=== PATIENT | female | born 1960 ===

== ENCOUNTER 2025-05-12 17:32 | Inpatient (IN) | payer MEDICARE, OTHER ==
[~2025-05-12] VITALS: Ht 167.6 cm; Wt 67.7 kg
[~2025-05-12 17:32] MED LIST: Robaxin750 MG PO
[2025-05-12] MEDS ORDERED: NS 1,000 ML IV SCH ×3 (17:40→23:10)
[2025-05-12 18:07] LABS: BASOPHILS ABSOLUTE AUTO 0.02 K/mm3 (0.00-0.23); BASOPHILS PERCENT AUTO 0 % (0-2); EOSINOPHILS ABSOLUTE AUTO 0.00 K/mm3 (0.00-0.68); EOSINOPHILS PERCENT AUTO 0 % (0-6); Hematocrit 48.2 % (33.0-51.0); Hemoglobin 16.2 g/dL (11.5-16.0); IMMATURE GRAN ABSOLUTE AUTO 0.07 K/mm3 (0.00-0.10); IMMATURE GRAN PERCENT AUTO 1 % (0-1); LYMPHOCYTES ABSOLUTE AUTO 1.84 K/mm3 (0.84-5.20); LYMPHOCYTES PERCENT AUTO 12 % (21-46); MONOCYTES ABSOLUTE AUTO 0.97 K/mm3 (0.16-1.47); MONOCYTES PERCENT AUTO 6 % (4-13); Mean Corpuscular HGB Conc 33.6 g/dL (31.5-36.5); Mean Corpuscular Volume 88 fL (80-100); NEUTROPHILS ABSOLUTE AUTO 12.31 K/mm3 (1.96-9.15); NEUTROPHILS PERCENT AUTO 81 % (41-73); NRBC ABSOLUTE 0.00 K/mm3 (0.00-0.02); NRBC Auto 0.0 /100 WBC (0.0-0.2); Platelet Count 321 K/mm3 (150-400); RDW Coefficient Variation 14.8 % (11.7-14.2); RDW Standard Deviation 47.3 fL (35.1-46.3)
[2025-05-12 18:47] LABS: Alanine Aminotransfer (ALT/SGP 70.0 U/L (12-78); Albumin, Blood 3.3 g/dL (3.4-5.0); Albumin/Globulin Ratio 0.8 (0.8-1.8); Anion Gap 12.0 mmol/L (3-11); Bilirubin, Total 1.4 mg/dL (0.1-1.0); Blood Urea Nitrogen 41.0 mg/dL (8-24); CO2, Blood 25.0 mmol/L (21-32); Calcium, Blood 9.5 mg/dL (8.5-10.1); Chloride, Blood 110.0 mmol/L (98-108); Creatinine, Blood 0.52 mg/dL (0.40-1.00); Globulin, Blood 4.1 g/dL (2.2-4.0); Glucose, Blood 109.0 mg/dL (70-99); Sodium, Blood 141.0 mmol/L (136-145); Total Protein, Blood 7.4 g/dL (6.4-8.2)
[2025-05-12 18:48] LABS: Aspartate Aminotrans (AST/SGOT 163.0 U/L (12-37); Potassium, Blood 5.6 mmol/L (3.5-5.5)
[2025-05-12 18:54] LABS: Source, Urine Foley catheter
[2025-05-12 19:05] LABS: Color, Urine Yellow (P-Yellow); Glucose Qualitative, Urine Neg (Neg); Ketones, Urine 2+ (Neg); Leukocyte Esterase, Urine 1+ (Neg); Protein, Urine 2+ (Neg); Specific Gravity, Urine 1.025 (1.003-1.022); Urobilinogen, Urine 1+ (Normal)
[2025-05-12 19:14] LABS: Bilirubin, Urine 1+ (Neg)
[2025-05-12 19:22] LABS: U Amphetamine Screen Not Detected; U Barbiturate Screen Not Detected; U Benzodiazapine Screen Not Detected; U Buprenorphine Screen Not Detected; U Cannabinoids Screen DETECTED; U Cocaine Screen Not Detected; U Methadone Screen Not Detected; U Methamphetamine Screen Not Detected; U Opiates Screen Not Detected; U Oxycodone Screen Not Detected; U Phencyclidine Screen Not Detected
[2025-05-12] MEDS ORDERED: Piperacillin/Tazobactam Sod 4.5 GM in NS 100 ML IV ONE (19:25)
[2025-05-12] MEDS ORDERED: Vancomycin HCL 2,000 MG in NS 520 ML IV ONE (19:25)
[2025-05-12] MEDS ORDERED: FLU VACC TS2025(65UP)/MF59C/PF 45 MCG/0.5 ML SYRINGE IM SCH (23:10)
[2025-05-12] MEDS ORDERED: Ondansetron HCl 2 MG / ML 2ML Vial IV PRN (23:10)
[2025-05-12] MEDS ORDERED: FentaNYL Citrate 50 MCG/ML 2 ML Injection IV PRN (23:10)
[2025-05-12 23:26] LABS: Prothrombin Time Results 11.8 Sec (9.7-11.5)
[2025-05-13 00:19] VITALS: BP 113/85
[2025-05-13 01:40] LABS: Anion Gap 11.0 mmol/L (3-11); Blood Urea Nitrogen 34.0 mg/dL (8-24); CO2, Blood 26.0 mmol/L (21-32); Calcium, Blood 8.9 mg/dL (8.5-10.1); Chloride, Blood 115.0 mmol/L (98-108); Creatinine, Blood 0.67 mg/dL (0.40-1.00); Glucose, Blood 92.0 mg/dL (70-99); Potassium, Blood 3.9 mmol/L (3.5-5.5); Sodium, Blood 148.0 mmol/L (136-145)
[2025-05-13] MEDS ORDERED: CefTRIAXone Sodium 1,000 MG in NS 100 ML IV SCH (02:29)
[2025-05-13] MEDS ORDERED: NS 250 ML IV PRN (03:00)
[2025-05-13] MEDS ORDERED: Tobramycin/Dexameth Opth Susp 2.5 ML LEFTEYE SCH (06:00)
[2025-05-13 06:11] LABS: BASOPHILS ABSOLUTE AUTO 0.01 K/mm3 (0.00-0.23); BASOPHILS PERCENT AUTO 0 % (0-2); EOSINOPHILS ABSOLUTE AUTO 0.04 K/mm3 (0.00-0.68); EOSINOPHILS PERCENT AUTO 0 % (0-6); Hematocrit 41.3 % (33.0-51.0); Hemoglobin 13.6 g/dL (11.5-16.0); IMMATURE GRAN ABSOLUTE AUTO 0.05 K/mm3 (0.00-0.10); IMMATURE GRAN PERCENT AUTO 0 % (0-1); LYMPHOCYTES ABSOLUTE AUTO 1.61 K/mm3 (0.84-5.20); LYMPHOCYTES PERCENT AUTO 14 % (21-46); MONOCYTES ABSOLUTE AUTO 0.86 K/mm3 (0.16-1.47); MONOCYTES PERCENT AUTO 7 % (4-13); Mean Corpuscular HGB Conc 32.9 g/dL (31.5-36.5); Mean Corpuscular Volume 90 fL (80-100); NEUTROPHILS ABSOLUTE AUTO 9.39 K/mm3 (1.96-9.15); NEUTROPHILS PERCENT AUTO 79 % (41-73); NRBC ABSOLUTE 0.00 K/mm3 (0.00-0.02); NRBC Auto 0.0 /100 WBC (0.0-0.2); Platelet Count 274 K/mm3 (150-400); RDW Coefficient Variation 14.9 % (11.7-14.2); RDW Standard Deviation 48.8 fL (35.1-46.3)
[2025-05-13 06:17] VITALS: BP 130/81
[2025-05-13 06:29] LABS: Alanine Aminotransfer (ALT/SGP 57.0 U/L (12-78); Albumin, Blood 2.9 g/dL (3.4-5.0); Albumin/Globulin Ratio 0.9 (0.8-1.8); Anion Gap 9.0 mmol/L (3-11); Aspartate Aminotrans (AST/SGOT 106.0 U/L (12-37); Bilirubin, Total 1.0 mg/dL (0.1-1.0); Blood Urea Nitrogen 30.0 mg/dL (8-24); CO2, Blood 27.0 mmol/L (21-32); Calcium, Blood 8.8 mg/dL (8.5-10.1); Chloride, Blood 115.0 mmol/L (98-108); Creatinine, Blood 0.71 mg/dL (0.40-1.00); Globulin, Blood 3.1 g/dL (2.2-4.0); Glucose, Blood 91.0 mg/dL (70-99); Potassium, Blood 3.6 mmol/L (3.5-5.5); Sodium, Blood 147.0 mmol/L (136-145); Total Protein, Blood 6.0 g/dL (6.4-8.2)
--- NOTE | 2025-05-13 06:43 | NUR ---
Shift Summary Pt admitted to this unit from ED for rhabdo, UTI and wounds. She was found down at her house for an unknown amount of time up to 5 days. She has pressure injuries on L face, L hand and L foot. Consult ordered for ortho to determine if pt needs debridement, I placed a request into Dr. Pratt's answering service for today. Pt is AOx3, on bedrest, very weak. She had one loose, watery incontinent BM this shift. No c/o of pain or nausea.
[2025-05-13 09:31] VITALS: BP 140/82
[2025-05-13] MEDS ORDERED: NS 1,000 ML IV SCH (12:30)
[2025-05-13 12:39] VITALS: BP 137/80
[2025-05-13] MEDS ORDERED: CELEXA40 M1 PO (13:05)
[2025-05-13] MEDS ORDERED: ELIQUIS5 M2 PO (13:05)
[2025-05-13] MEDS ORDERED: BUSP5 PO (13:05)
[2025-05-13] MEDS ORDERED: POTA20PAC PO (13:06)
[2025-05-13] MEDS ORDERED: LEVETIRACETAM1000 M1 PO (13:06)
[2025-05-13] MEDS ORDERED: ATOR40TA PO (13:08)
[2025-05-13 15:52] VITALS: BP 119/81
[2025-05-13] MEDS ORDERED: Enoxaparin 40 MG/0.4 ML SYR SC SCH (19:05)
[2025-05-13 20:37] VITALS: BP 114/71
[2025-05-14] VITALS (8 sets, daily range): BP systolic 110–127; BP diastolic 68–81
--- NOTE | 2025-05-14 05:54 | NUR ---
PT L HAND RING FINGER HAD SWELLING RING WAS REMOVED AND PLACED IN HER BELONGLINGS BAG INSIDE HER SLIPPER. PT HAS SCATTERED SCABS AND ESCHAR. CARDOSO CATHETER WAS REMOVED PT HAS DENIED THE NEED TO URINATE AT 0100 BLADDER SCAN SHOWED 158 ML AT 0500 BLADDER SCAN SHOWED 408 ML PT DENIES THE NEED TO URINATE AND WOULD LIKE TO WAIT ANOTHER 2 HOURS BEFORE TRYING TO URINATE.
[2025-05-14 06:29] LABS: BASOPHILS ABSOLUTE AUTO 0.02 K/mm3 (0.00-0.23); BASOPHILS PERCENT AUTO 0 % (0-2); EOSINOPHILS ABSOLUTE AUTO 0.23 K/mm3 (0.00-0.68); EOSINOPHILS PERCENT AUTO 3 % (0-6); Hematocrit 36.1 % (33.0-51.0); Hemoglobin 12.1 g/dL (11.5-16.0); IMMATURE GRAN ABSOLUTE AUTO 0.09 K/mm3 (0.00-0.10); IMMATURE GRAN PERCENT AUTO 1 % (0-1); LYMPHOCYTES ABSOLUTE AUTO 2.37 K/mm3 (0.84-5.20); LYMPHOCYTES PERCENT AUTO 25 % (21-46); MONOCYTES ABSOLUTE AUTO 0.63 K/mm3 (0.16-1.47); MONOCYTES PERCENT AUTO 7 % (4-13); Mean Corpuscular HGB Conc 33.5 g/dL (31.5-36.5); Mean Corpuscular Volume 90 fL (80-100); NEUTROPHILS ABSOLUTE AUTO 6.00 K/mm3 (1.96-9.15); NEUTROPHILS PERCENT AUTO 64 % (41-73); NRBC ABSOLUTE 0.00 K/mm3 (0.00-0.02); NRBC Auto 0.0 /100 WBC (0.0-0.2); Platelet Count 253 K/mm3 (150-400); RDW Coefficient Variation 14.6 % (11.7-14.2); RDW Standard Deviation 48.5 fL (35.1-46.3)
[2025-05-14 06:50] LABS: Alanine Aminotransfer (ALT/SGP 47.0 U/L (12-78); Albumin, Blood 2.4 g/dL (3.4-5.0); Albumin/Globulin Ratio 0.9 (0.8-1.8); Anion Gap 8.0 mmol/L (3-11); Aspartate Aminotrans (AST/SGOT 73.0 U/L (12-37); Bilirubin, Total 1.0 mg/dL (0.1-1.0); Blood Urea Nitrogen 19.0 mg/dL (8-24); CO2, Blood 26.0 mmol/L (21-32); Calcium, Blood 8.1 mg/dL (8.5-10.1); Chloride, Blood 110.0 mmol/L (98-108); Creatinine, Blood 0.61 mg/dL (0.40-1.00); Globulin, Blood 2.6 g/dL (2.2-4.0); Glucose, Blood 98.0 mg/dL (70-99); Potassium, Blood 3.0 mmol/L (3.5-5.5); Sodium, Blood 141.0 mmol/L (136-145); Total Protein, Blood 5.0 g/dL (6.4-8.2)
--- NOTE | 2025-05-14 13:07 | NUR ---
PT FALL PT FOUND ON THE FLOOR BY TIFFANY DENG AT 0745. PT STATED SHE WAS "DRAGGING" HER FEET WHILE USING THE WALKER BY THE WALL IN HER ROOM WHEN SHE "LEANED" AGAINST THE WALL AND "SLID" DOWN THE WALL TO THE FLOOR. VITALS TAKEN AND STABLE, NO INJURIES SUSTAINED. VENUS JOHNSON AND TIFFANY DENG ASSISTED PT TO THE CHAIR. THIS RN NOTIFIED [employer] [place] AND . PER PROVIDER, ORDER FOR SEIZURE AND FALL PRECAUTIONS, AND COMPLETE SET OF ORTHOSTATIC VITALS. PT PLACED IN YELLOW GOWN, YELLOW SOCKS ON, CHAIR ALARM ON, AND RISK FOR FALL LIGHT PLACED ON OUTSIDE OF ROOM. CALL LIGHT PLACED WITHIN REACH. POST FALL ASSESSMENT COMPLETE.
--- NOTE | 2025-05-14 13:31 | NUR ---
PUT PATIENT INTO A YELLOW GOWN AND YELLOW SOCKS,VITALS OBTAINED, ASSISTED TO THE CHAIR FOR BREAKFAST AND SET UP MEAL TRAY,COMBED THE KNOTS OUT OF HER MATTED HAIR AND BRAIDED
--- NOTE | 2025-05-14 17:42 | NUR ---
FLUIDS NOT STARTED PER ORDER YESTERDAY. THIS RN CALLED TO CLARIFY. PER PROVIDER, START FLUIDS PER ORDER.
--- NOTE | 2025-05-14 18:01 | NUR ---
SHIFT SUMMARY PT A&OX4, VSS, AMB W/ ASSIST, TOLERATING PO, VOIDING, AND DENIED PAIN. NS INFUSING PER ORDER. PT HAD FALL THIS AM, SEE PREVIOUS NOTE. NO OTHER ACUTE CHANGES. CALL LIGHT WITHIN REACH AND CHAIR ALARM ON.
[2025-05-15 03:39] VITALS: BP 134/76
--- NOTE | 2025-05-15 03:56 | NUR ---
SHIFT SUMMARY: PT IS AOX2-3 AND IS FORGETFUL MOST OF THE TIME. PT IS IMPULSIVE AND EDUCATED SEVERAL TIMES TO CALL INSTEAD OF GETTING OUT OF BED WITH OUT HELP. BED ALARM SET BUT PT SET BED ALARM OFF SEVERAL TIMES THROUGHOUT SHIFT. PT IS MOST CONT AND HAS NS RUNNING CONTINOUSLY AT 100 MLS/HR.
[2025-05-15 07:40] VITALS: BP 129/89
[2025-05-15 11:43] VITALS: BP 121/79
[2025-05-15 11:51] LABS: BASOPHILS ABSOLUTE AUTO 0.03 K/mm3 (0.00-0.23); BASOPHILS PERCENT AUTO 0 % (0-2); EOSINOPHILS ABSOLUTE AUTO 0.26 K/mm3 (0.00-0.68); EOSINOPHILS PERCENT AUTO 3 % (0-6); Hematocrit 39.7 % (33.0-51.0); Hemoglobin 13.1 g/dL (11.5-16.0); IMMATURE GRAN ABSOLUTE AUTO 0.14 K/mm3 (0.00-0.10); IMMATURE GRAN PERCENT AUTO 1 % (0-1); LYMPHOCYTES ABSOLUTE AUTO 2.67 K/mm3 (0.84-5.20); LYMPHOCYTES PERCENT AUTO 27 % (21-46); MONOCYTES ABSOLUTE AUTO 0.70 K/mm3 (0.16-1.47); MONOCYTES PERCENT AUTO 7 % (4-13); Mean Corpuscular HGB Conc 33.0 g/dL (31.5-36.5); Mean Corpuscular Volume 91 fL (80-100); NEUTROPHILS ABSOLUTE AUTO 6.25 K/mm3 (1.96-9.15); NEUTROPHILS PERCENT AUTO 62 % (41-73); NRBC ABSOLUTE 0.00 K/mm3 (0.00-0.02); NRBC Auto 0.0 /100 WBC (0.0-0.2); Platelet Count 304 K/mm3 (150-400); RDW Coefficient Variation 14.6 % (11.7-14.2); RDW Standard Deviation 49.1 fL (35.1-46.3)
[2025-05-15 12:38] LABS: Alanine Aminotransfer (ALT/SGP 71.0 U/L (12-78); Albumin, Blood 2.8 g/dL (3.4-5.0); Albumin/Globulin Ratio 0.9 (0.8-1.8); Anion Gap 7.0 mmol/L (3-11); Aspartate Aminotrans (AST/SGOT 94.0 U/L (12-37); Bilirubin, Total 1.0 mg/dL (0.1-1.0); Blood Urea Nitrogen 9.0 mg/dL (8-24); CO2, Blood 29.0 mmol/L (21-32); Calcium, Blood 8.6 mg/dL (8.5-10.1); Chloride, Blood 107.0 mmol/L (98-108); Creatinine, Blood 0.62 mg/dL (0.40-1.00); Globulin, Blood 3.1 g/dL (2.2-4.0); Glucose, Blood 119.0 mg/dL (70-99); Potassium, Blood 3.6 mmol/L (3.5-5.5); Sodium, Blood 139.0 mmol/L (136-145); Total Protein, Blood 5.9 g/dL (6.4-8.2)
[2025-05-15 15:52] VITALS: BP 128/84
--- NOTE | 2025-05-15 17:08 | NUR ---
SHIFT SUMMARY PATIENT ALERT AND ORIENTED X 3-4 FORGETFUL AT TIMES. MAKE NEEDS KNOWN. VITAL SIGNS STABLE THROUGHOUT THE SHIFT. MEDICATION ADMINISTERED PER EMAR. PATIENT PLEASANT AND RECEPTIVE DURING CARE. NO ACUTE CHANGE DURING THIS SHIFT. TOLERATING PO, VOIDING, AND DENIES PAIN. SELF REPOSITIONED THROUGHOUT SHIFT. BED LOCKED AND IN LOWEST POSITION. CALL LIGHT WITHIN REACH.
[2025-05-15 19:20] VITALS: BP 121/72
[2025-05-16 03:41] VITALS: BP 131/91
--- NOTE | 2025-05-16 05:44 | NUR ---
Pt has slept t/o the night incontinent of urine. No acute changes noted, pt has denied pain and needs this shift.
[2025-05-16 07:31] VITALS: BP 139/78
--- NOTE | 2025-05-16 09:10 | NUR ---
pt laying in bed with eyes closed, wakes easily, is a/ox4, pleasant and cooperative with care, follows commands well, she is a bit forgetful, lungs are clear dim in bases, on r/a, resp even and unlabored, no cough noted, hrr, no edema noted, ppp+2, cap refill <3 sec, vs stable, afebrile, piv to lac site is clear and patent, btx4, abd flat soft nontender, incont of urine, briefs in place, skin has scattered scratches and scabs on left arm and belly, maew, general weakness, alcon, call light in reach.
[2025-05-16] MEDS ORDERED: Tobramycin-Dexam5 ML LEFTEYE (10:38)
--- NOTE | 2025-05-16 13:21 | NUR ---
pt will be tx to long term care administrator care, transport will be here at 14:30, report called to Spike at [facility]. piv removed intact, call light in reach.
--- NOTE | 2025-05-16 14:13 | NUR ---
pt is transfered to [facility], left with transport via wheelchair with all her belongings. piv removed intact.
== END 2025-05-16 14:50 | DRG 557 ==
LOC: ER 17:32 → MEDS 22:21 → ENPENDDIS 05-16 10:11 → MEDS 05-16 14:50
PROVIDERS: Emergency Medicine; Internal Medicine; ADMIT Internal Medicine
PROC: 0T9B70Z Drainage of Bladder with Drainage Device, Via Natural or Artificial Opening (ICD-10-PCS; principal; 2025-05-12)
PROC: 3E03329 Introduction of Other Anti-infective into Peripheral Vein, Percutaneous Approach (ICD-10-PCS; 2025-05-12)
PROC: 3E02340 Introduction of Influenza Vaccine into Muscle, Percutaneous Approach (ICD-10-PCS; 2025-05-12)
DX: M62.82 Rhabdomyolysis (principal); G93.41 Metabolic encephalopathy; S22.42XA Multiple fractures of ribs, left side, initial encounter for closed fracture; F41.8 Other specified anxiety disorders; E78.00 Pure hypercholesterolemia, unspecified; G47.33 Obstructive sleep apnea (adult) (pediatric); G40.909 Epilepsy, unspecified, not intractable, without status epilepticus; F12.20 Cannabis dependence, uncomplicated; L89.819 Pressure ulcer of head, unspecified stage; R82.81 Pyuria; S05.12XA Contusion of eyeball and orbital tissues, left eye, initial encounter; S60.212A Contusion of left wrist, initial encounter; L89.899 Pressure ulcer of other site, unspecified stage; E87.5 Hyperkalemia; H10.9 Unspecified conjunctivitis; Z86.73 Personal history of transient ischemic attack (TIA), and cerebral infarction without residual deficits; Z98.51 Tubal ligation status; Z90.49 Acquired absence of other specified parts of digestive tract; Z98.890 Other specified postprocedural states; Z79.01 Long term (current) use of anticoagulants; Z79.899 Other long term (current) drug therapy; Z86.16 Personal history of COVID-19; Z86.79 Personal history of other diseases of the circulatory system; W19.XXXA Unspecified fall, initial encounter; Y92.009 Unspecified place in unspecified non-institutional (private) residence as the place of occurrence of the external cause; Z23 Encounter for immunization
CPT/HCPCS: 36415; 51702; 70450; 70486; 71046; 73030; 73502; 80048; 80053; 80320; 81001; 82550; 83605; 83880; 84484; 85025; 85610; 87040; 87077; 87086; 87185; 93005; 93010; 96361; 96365; 96375; 97110; 97116; 97161; 97166; 97530; 97535; 99285-25; A9270; J0696; J1650; J2543; J3373; J7030; J7040